=== PATIENT | female | born 1970 | race Caucasian/White ===

== ENCOUNTER 2019-05-17 20:36 | Inpatient (IN) | payer BC, OTHER ==
[2019-05-17] MEDS ORDERED: NA CHLORIDE 0.9% 1,000 ML ONE (20:45)
[2019-05-17] MEDS ORDERED: ONDANSETRON 4 MG/2 ML VIAL ONE (21:02)
[2019-05-17] MEDS ORDERED: FAMOTIDINE 20 MG/2 ML VIAL IV ONE (21:02)
[2019-05-17] MEDS ORDERED: MORPHINE 4 MG/ML SYR ONE (21:02)
[2019-05-17 21:03] LABS: Urine Blood NEGATIVE (NEG); Urine Glucose NEGATIVE (NEG); Urine Protein NEGATIVE (NEG)
[2019-05-17 21:05] LABS: Absolute Lymphocytes (CBC) 1.2 K/uL (0.7-4.9); Basophils % 0.4 % (0-1.3); Hematocrit 43.7 % (36.0-45.0); Lymphocytes % 8.5 % (15.3-44.8); RBC Red Blood Cell Count 4.53 M/uL (3.86-4.86)
[2019-05-17 21:21] LABS: Albumin 3.6 g/dL (3.4-5.0); Bilirubin Direct 0.2 mg/dL (0-0.2); Bilirubin Total 0.8 mg/dL (0.2-1.0); Potassium 3.5 mmol/L (3.5-5.1); Protein, Total 7.8 g/dL (6.4-8.2)
[2019-05-17] MEDS ORDERED: METRONIDAZOLE 500mg IVPB 500 MG/100 ML BAG IV ONE (21:57)
[2019-05-17] MEDS ORDERED: levoFLOXacin 750 MG TAB ONE (22:09)
--- NOTE | 2019-05-17 22:25 | EDPHYS ---
Physician Documentation [facility] Name: Kristine Snider Age: 48 yrs Sex: Female : 1970 Arrival Date: 05/17/2019 Time: 20:41 Bed 23 Private MD: ED Physician Jose Yanez HPI: 05/17 21:26 This 48 yrs old Female presents to ER via Ambulatory with complaints of kdr Abdominal Pain. 21:26 The patient presents with abdominal pain in the lower abdomen. Onset: The kdr symptoms/episode began/occurred gradually, 2 day(s) ago. The symptoms do not radiate. Associated signs and symptoms: Pertinent positives: Pertinent negatives: nausea and vomiting, constipation, diarrhea, dysuria, fever, headache, hematuria, nausea, palpitations, vomiting blood. The symptoms are described as achy, constant, Occasional stabbing pain. Modifying factors: The symptoms are alleviated by. Severity of pain: At its worst the pain was mild in the emergency department the pain is unchanged. The patient has not recently seen a physician. 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 - Social history:: Smoking status: Patient/guardian denies using tobacco, Patient uses alcohol, only on a social basis. Patient/guardian denies using street drugs. - Ebola Screening: : Patient negative for fever greater than or equal to 101.5 degrees Fahrenheit, and additional compatible Ebola Virus Disease symptoms Patient denies exposure to infectious person Patient denies travel to an Ebola-affected area in the 21 days before illness onset. ROS: 21:26 Constitutional: Negative for fever, chills, and weight loss, Eyes: Negative for injury, kdr pain, redness, and discharge, Neck: Negative for injury, pain, and swelling, Cardiovascular: Negative for chest pain, palpitations, and edema, Respiratory: Negative for shortness of breath, cough, wheezing, and pleuritic chest pain, Back: Negative for injury and pain, : Negative for injury, bleeding, discharge, and swelling, MS/Extremity: Negative for injury and deformity, Skin: Negative for injury, rash, and discoloration, Neuro: Negative for headache, weakness, numbness, tingling, and seizure activity. Psych: Negative for depression, anxiety, suicide ideation, homicidal ideation, and hallucinations, Allergy/Immunology: Negative for hives, rash, and allergies, Endocrine: Negative for neck swelling, polydipsia, polyuria, polyphagia, and marked weight changes, Hematologic/Lymphatic: Negative for swollen nodes, abnormal bleeding, and unusual bruising. 21:26 Abdomen/GI: Positive for abdominal pain, Negative for abdominal distension, anorexia, dysphagia, hematemesis, black/tarry stool, rectal pain, rectal bleeding, flatulence. Exam: 21:26 Constitutional: This is a well developed, well nourished patient who is awake, alert, kdr and in no acute distress. Head/Face: Normocephalic, atraumatic. Eyes: Pupils equal round and reactive to light, extra-ocular motions intact. Lids and lashes normal. Conjunctiva and sclera are non-icteric and not injected. Cornea within normal limits. Periorbital areas with no swelling, redness, or edema. Neck: Trachea midline, no thyromegaly or masses palpated, and no cervical lymphadenopathy. Supple, full range of motion without nuchal rigidity, or vertebral point tenderness. No Meningismus. Chest/axilla: Normal chest wall appearance and motion. Nontender with no deformity. No lesions are appreciated. Cardiovascular: Regular rate and rhythm with a normal S1 and S2. No gallops, murmurs, or rubs. Normal PMI, no JVD. No pulse deficits. Respiratory: Lungs have equal breath sounds bilaterally, clear to auscultation and percussion. No rales, rhonchi or wheezes noted. No increased work of breathing, no retractions or nasal flaring. Back: No spinal tenderness. No costovertebral tenderness. Full range of motion. Skin: Warm, dry with normal turgor. Normal color with no rashes, no lesions, and no evidence of cellulitis. MS/ Extremity: Pulses equal, no cyanosis. Neurovascular intact. Full, normal range of motion. Neuro: Awake and alert, GCS 15, oriented to person, place, time, and situation. Cranial nerves II-XII grossly intact. Motor strength 5/5 in all extremities. Sensory grossly intact. Cerebellar exam normal. Normal gait. Psych: Awake, alert, with orientation to person, place and time. Behavior, mood, and affect are within normal limits. 21:26 Abdomen/GI: Inspection: abdomen appears normal, Bowel sounds: active, all quadrants, Palpation: soft, moderate abdominal tenderness, rebound tenderness, is appreciated in the right lower quadrant, voluntary guarding, tenderness to percussion, is appreciated in the right lower quadrant and left lower quadrant. Vital Signs: 20:35 BP 117 / 83; Pulse 87; Resp 12; Temp 99.3(O); Pulse Ox 98% on R/A; Weight 67.13 kg (R); fc Height 5 ft. 4 in. (162.56 cm) (R); Pain 7/10; 21:30 BP 121 / 82; Pulse 82; Resp 16 S; Pulse Ox 98% on R/A; ca1 22:24 BP 126 / 77; Pulse 89; Resp 17 S; Pulse Ox 98% on R/A; ca1 20:35 Body Mass Index 25.40 (67.13 kg, 162.56 cm) fc MDM: 21:26 Data reviewed: vital signs, nurses notes, lab test result(s), radiologic studies. kdr Counseling: I had a detailed discussion with the patient and/or guardian regarding: the historical points, exam findings, and any diagnostic results supporting the discharge/admit diagnosis, lab results, radiology results. 22:23 Patient medically screened. [facility] 05/17 20:42 Order name: Basic Metabolic Panel; Complete Time: 21:54 kdr 05/17 20:42 Order name: CBC with Diff; Complete Time: 21:54 kdr 05/17 20:42 Order name: Creatinine for Radiology; Complete Time: 21:54 kdr 05/17 20:42 Order name: Hepatic Function; Complete Time: 21:54 kdr 05/17 20:42 Order name: Lipase; Complete Time: 21:54 kdr 05/17 20:59 Order name: Urine Dipstick--Ancillary (enter results) mt 05/17 21:04 Order name: Urine Dipstick-Ancillary EDWI 05/17 23:56 Order name: CBC with Automated Diff EDMS 05/17 23:56 Order name: CBC with Automated Diff EDMS 05/17 23:56 Order name: Comprehensive Metabolic Panel EDMS 05/17 23:56 Order name: Comprehensive Metabolic Panel EDMS 05/17 23:56 Order name: Protime (+INR) EDMS 05/17 23:56 Order name: Protime (+INR) EDMS 05/17 23:56 Order name: PTT, Activated Partial Thromb EDMS 05/17 20:42 Order name: CT Abd/Pelvis - IV Contrast Only kdr 05/17 23:56 Order name: CONS Pharmacy Consult EDMS 05/17 23:56 Order name: CONS Physician Consult EDMS 05/17 23:56 Order name: PTT, Activated Partial Thromb EDMS 05/17 23:59 Order name: B-HCG Tumor Marker EDMS 05/17 23:59 Order name: B-HCG Tumor Marker EDMS 05/17 23:59 Order name: T4 Free EDMS 05/17 23:59 Order name: T4 Free EDMS 05/17 23:59 Order name: Thyroid Stimulating Hormone EDMS 05/18 00:00 Order name: Thyroid Stimulating Hormone EDMS 05/17 20:42 Order name: IV Saline Lock; Complete Time: 21:07 kdr 05/17 20:42 Order name: Labs collected and sent; Complete Time: 21:07 kdr 05/17 23:56 Order name: Clear Liquid EDWI Administered Medications: 20:50 Drug: NS 0.9% 1000 ml Route: IV; Rate: 1 bolus; Site: right antecubital; ca1 22:26 Follow up: Response: No adverse reaction; IV Status: Completed infusion; IV Intake: ca1 1000ml 20:51 Drug: Zofran 4 mg Route: IVP; Site: right antecubital; ca1 21:59 Follow up: Response: No adverse reaction; Nausea is decreased ca1 20:55 Drug: Pepcid 20 mg Route: IVP; Site: right antecubital; ca1 21:59 Follow up: Response: No adverse reaction; Pain is decreased ca1 21:06 Drug: morphine 4 mg {Note: RASS - 0.} Route: IVP; Site: right antecubital; ca1 21:58 Follow up: Response: No adverse reaction; Pain is decreased; RASS: Alert and Calm (0) ca1 21:58 Drug: Flagyl 500 mg Volume: 100 ml; Route: IVPB; Rate: 200 ml/hr; Infused Over: 30 ca1 mins; Site: right antecubital; 22:41 Follow up: Response: No adverse reaction; IV Status: Completed infusion ca1 22:10 Drug: LevaQUIN 750 mg Route: PO; rv 22:41 Follow up: Response: No adverse reaction ca1 Disposition: 05/17/19 23:13 Hospitalization ordered by Fernando Louie for Inpatient Admission. Preliminary diagnosis are Abdominal and pelvic pain, Perforated Diverticulitis. - Bed requested for Telemetry/MedSurg (Inpatient). - Status is Inpatient Admission. rv - Condition is Fair. - Problem is new. - Symptoms have improved. UTI on Admission? No Signatures: Dispatcher [employer] EDMS Jose Yanez MD MD kdr Justa Dalal RN RN fc Burak Wolfe RN RN rv AcobBrenda RN RN ca1 Corrections: (The following items were deleted from the chart) 22:42 22:23 05/17/2019 22:23 Discharged to Home. Impression: Abdominal and pelvic pain; ca1 Diverticulitis, Cecum. Condition is Stable. Forms are Medication Reconciliation Form, Thank You Letter, Antibiotic Education, Prescription Opioid Use. Follow up: Private Physician; When: 2 - 3 days; Reason: If symptoms return, Further diagnostic work-up, Recheck today's complaints, Continuance of care, Re-evaluation by your physician. Problem is new. Symptoms have improved. kdr 22:54 22:42 05/17/2019 22:23 Discharged to Home. Impression: Abdominal and pelvic pain; fc Diverticulitis, Cecum. Condition is Stable. Discharge Instructions: Abdominal Pain, Adult, [id number]. Prescriptions for Bentyl 20 mg Oral Tablet - take 1 tablet by ORAL route every 6 hours As needed; 20 tablet, Flagyl 500 mg Oral Tablet - take 1 tablet by ORAL route every 6 hours for 10 days; 40 tablet, Levaquin 500 mg Oral Tablet - take 1 tablet by ORAL route once daily for 10 days; 10 tablet, Zofran 4 mg Oral Tablet - take 1 tablet by ORAL route every 4-6 hours As needed; 16 tablet, Tylenol-Codeine #3 300-30 mg Oral Tablet - take 2 tablets by ORAL route every 4-6 hours As needed; 30 tablet. and Forms are Medication Reconciliation Form, Thank You Letter, Antibiotic Education, Prescription Opioid Use. Follow up: Private Physician; When: 2 - 3 days; Reason: If symptoms return, Further diagnostic work-up, Recheck today's complaints, Continuance of care, Re-evaluation by your physician. Problem is new. Symptoms have improved. ca1 23:12 22:54 05/17/2019 22:23 Discharged to Home. Impression: Abdominal and pelvic pain; kdr Diverticulitis, Cecum. Condition is Stable. Discharge Instructions: Abdominal Pain, Adult, [id number]. Prescriptions for Bentyl 20 mg Oral Tablet - take 1 tablet by ORAL route every 6 hours As needed; 20 tablet, Flagyl 500 mg Oral Tablet - take 1 tablet by ORAL route every 6 hours for 10 days; 40 tablet, Levaquin 500 mg Oral Tablet - take 1 tablet by ORAL route once daily for 10 days; 10 tablet, Tramadol 50 mg Oral Tablet - take 1 tablet by ORAL route every 8 hours as needed; 12 tablet, Zofran 4 mg Oral Tablet - take 1 tablet by ORAL route every 4-6 hours As needed; 16 tablet, Tylenol-Codeine #3 300-30 mg Oral Tablet - take 2 tablets by ORAL route every 4-6 hours As needed; 30 tablet. and Forms are Medication Reconciliation Form, Thank You Letter, Antibiotic Education, Prescription Opioid Use. Follow up: Private Physician; When: 2 - 3 days; Reason: If symptoms return, Further diagnostic work-up, Recheck today's complaints, Continuance of care, Re-evaluation by your physician. Problem is new. Symptoms have improved. 23:43 23:13 Hospitalization Ordered by Fernando Louie MD for Inpatient Admission. Preliminary rv diagnosis is Abdominal and pelvic pain; Perforated Diverticulitis. Bed requested for Telemetry/MedSurg (Inpatient). Status is Inpatient Admission. Condition is Fair. Problem is new. Symptoms have improved. UTI on Admission? No. kdr 05/18 00:39 05/17 23:43 05/17/2019 23:13 Hospitalization Ordered by Fernando Louie MD for Inpatient rv Admission. Preliminary diagnosis is Abdominal and pelvic pain; Perforated Diverticulitis. Bed requested for Telemetry/MedSurg (Inpatient). Status is Inpatient Admission. Condition is Fair. Problem is new. Symptoms have improved. UTI on Admission? No. rv
--- NOTE | 2019-05-17 22:25 | ER ---
Nurse's Notes [facility] Name: Kristine Snider Age: 48 yrs Sex: Female : 1970 Arrival Date: 05/17/2019 Time: 20:41 Bed 23 Private MD: Diagnosis: Abdominal and pelvic pain;Perforated Diverticulitis Presentation: 05/17 20:35 Presenting complaint: Patient states: that yesterday she started to have lower abd fc pain. Last BM 2 days ago. No gas today. Pt has had 3 days worth of Levaquin. Transition of care: patient was not received from another setting of care. Onset of symptoms was May 16, 2019. Risk Assessment: Do you want to hurt yourself or someone else? Patient reports no desire to harm self or others. Initial Sepsis Screen: Does the patient meet any 2 criteria? No. Patient's initial sepsis screen is negative. Does the patient have a suspected source of infection? No. Patient's initial sepsis screen is negative. Care prior to arrival: Medication(s) given: Tylenol 1 gram at 1600. Tramadol 50 mg and Meloxicam 15 mg at 1700. Levaquin 500 mg daily x 3 doses. 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 - Social history:: Smoking status: Patient/guardian denies using tobacco, Patient uses alcohol, only on a social basis. Patient/guardian denies using street drugs. - Ebola Screening: : Patient negative for fever greater than or equal to 101.5 degrees Fahrenheit, and additional compatible Ebola Virus Disease symptoms Patient denies exposure to infectious person Patient denies travel to an Ebola-affected area in the 21 days before illness onset. Screenin:25 Abuse screen: Denies threats or abuse. Nutritional screening: No deficits noted. fc Tuberculosis screening: No symptoms or risk factors identified. Fall Risk None identified. Assessment: 20:45 General: Appears in no apparent distress. comfortable, Behavior is calm, cooperative, ca1 appropriate for age. Pain: Complains of pain in left lower quadrant and right lower quadrant Pain currently is 7 out of 10 on a pain scale. Quality of pain is described as stabbing, Pain began 2-3 days ago. Neuro: Level of Consciousness is awake, alert, obeys commands, Oriented to person, place, time, situation, Appropriate for age. Cardiovascular: Heart tones S1 S2 present Capillary refill < 3 seconds Patient's skin is warm and dry. Respiratory: Airway is patent Respiratory effort is even, unlabored, Respiratory pattern is regular, symmetrical. GI: Abdomen is round non-distended, Bowel sounds present X 4 quads. Abd is soft X 4 quads Abdomen is tender to palpation in right lower quadrant and left lower quadrant. : No deficits noted. No signs and/or symptoms were reported regarding the genitourinary system. EENT: No deficits noted. No signs and/or symptoms were reported regarding the EENT system. Derm: Skin is intact, is healthy with good turgor, Skin is pink, warm \T\ dry. Musculoskeletal: Circulation, motion, and sensation intact. Capillary refill < 3 seconds, Range of motion: intact in all extremities. 21:50 Reassessment: Patient appears in no apparent distress at this time. Patient and/or ca1 family updated on plan of care and expected duration. Pain level reassessed. Patient is alert, oriented x 3, equal unlabored respirations, skin warm/dry/pink. 22:23 Reassessment: Patient appears in no apparent distress at this time. Patient and/or ca1 family updated on plan of care and expected duration. Pain level reassessed. Patient is alert, oriented x 3, equal unlabored respirations, skin warm/dry/pink. 23:06 Reassessment: [facility] report has come back. Dr Yanez has reviewed test and discussed fc them with pts . Pt to return to ER for admission. 23:35 Reassessment: Pt has returned and is back in room. fc 23:44 Reassessment: Dr Munroe and Dr Louie speaking with and pt. fc Vital Signs: 20:35 BP 117 / 83; Pulse 87; Resp 12; Temp 99.3(O); Pulse Ox 98% on R/A; Weight 67.13 kg (R); fc Height 5 ft. 4 in. (162.56 cm) (R); Pain 7/10; 21:30 BP 121 / 82; Pulse 82; Resp 16 S; Pulse Ox 98% on R/A; ca1 22:24 BP 126 / 77; Pulse 89; Resp 17 S; Pulse Ox 98% on R/A; ca1 20:35 Body Mass Index 25.40 (67.13 kg, 162.56 cm) ED Course: 20:25 Patient has correct armband on for positive identification. Placed in gown. Bed in low fc position. Call light in reach. Pulse ox on. NIBP on. 20:25 No provider procedures requiring assistance completed. fc 20:35 Arm band placed on Patient placed in an exam room, on a stretcher. fc 20:41 Patient arrived in ED. cf2 20:42 Jose Yanez MD is Attending Physician. kdr 20:43 Brenda Sterling RN is Primary Nurse. ca1 20:52 Triage completed. fc 21:00 Radiology exam delayed due to lab results not completed at this time. (BUN/Creatinine). bq 22:08 CT Abd/Pelvis - IV Contrast Only In Process Unspecified. EDMS 22:42 IV discontinued, intact, bleeding controlled, No redness/swelling at site. Pressure ca1 dressing applied. 22:53 Primary Nurse role handed off by Brenda Sterling, JUDD fc 23:10 Burak Wolfe RN is Primary Nurse. rv 23:12 Fernando Louie MD is Hospitalizing Provider. kdr 05/18 00:11 Inserted saline lock: 22 gauge in left forearm, using aseptic technique. rv Administered Medications: 05/17 20:50 Drug: NS 0.9% 1000 ml Route: IV; Rate: 1 bolus; Site: right antecubital; ca1 22:26 Follow up: Response: No adverse reaction; IV Status: Completed infusion; IV Intake: ca1 1000ml 20:51 Drug: Zofran 4 mg Route: IVP; Site: right antecubital; ca1 21:59 Follow up: Response: No adverse reaction; Nausea is decreased ca1 20:55 Drug: Pepcid 20 mg Route: IVP; Site: right antecubital; ca1 21:59 Follow up: Response: No adverse reaction; Pain is decreased ca1 21:06 Drug: morphine 4 mg {Note: RASS - 0.} Route: IVP; Site: right antecubital; ca1 21:58 Follow up: Response: No adverse reaction; Pain is decreased; RASS: Alert and Calm (0) ca1 21:58 Drug: Flagyl 500 mg Volume: 100 ml; Route: IVPB; Rate: 200 ml/hr; Infused Over: 30 ca1 mins; Site: right antecubital; 22:41 Follow up: Response: No adverse reaction; IV Status: Completed infusion ca1 22:10 Drug: LevaQUIN 750 mg Route: PO; rv 22:41 Follow up: Response: No adverse reaction ca1 Intake: 22:26 IV: 1000ml; Total: 1000ml. ca1 Outcome: 22:23 Discharge ordered by . kdr 22:42 Discharged to home via wheelchair. ca1 22:42 Condition: stable 22:42 Discharge instructions given to patient, Instructed on discharge instructions, follow up and referral plans. medication usage, Demonstrated understanding of instructions, follow-up care, medications, Prescriptions given X 5 22:42 Patient left the ED. ca1 22:54 Patient left the ED. fc 23:13 Decision to Hospitalize by Provider. kdr 05/18 00:39 Patient left the ED. rv Signatures: Dispatcher [employer] EDMS Jose Yanez MD MD kdr Quilty, Betty bq Chretien, Felicia, RN RN Burak Wolfe RN RN rv Brenda Sterling RN RN [facility] Nolan Cox cf2
[2019-05-17] MEDS ORDERED: ONDANSETRON 4 MG/2 ML VIAL IV PRN (23:48)
[2019-05-18] MEDS ORDERED: ZOLPIDEM TARTRATE 5 MG TABLET PO PRN (00:23)
[2019-05-18 00:35] VITALS: BMI 27.2
[2019-05-18] MEDS: NA CHLORIDE 0.9% 1,000 ML IV SCH ×3 (01:05→20:05)
[2019-05-18] MEDS: MORPHINE 4 MG/ML SYR IV PRN ×2 (01:43→22:08)
[2019-05-18 04:34] LABS: Absolute Lymphocytes (CBC) 1.1 K/uL (0.7-4.9); Basophils % 0.4 % (0-1.3); Hematocrit 39.1 % (36.0-45.0); Lymphocytes % 10.7 % (15.3-44.8); MPV 9.5 fL (7.6-11.3); RBC Red Blood Cell Count 4.04 M/uL (3.86-4.86)
[2019-05-18 04:35] LABS: Protime INR 1.27
[2019-05-18] MEDS: METRONIDAZOLE 500mg IVPB 500 MG/100 ML BAG IV SCH ×4 (04:50→21:19)
[2019-05-18 04:55] LABS: Albumin 2.8 g/dL (3.4-5.0); Bilirubin Total 0.6 mg/dL (0.2-1.0); Potassium 3.8 mmol/L (3.5-5.1); Protein, Total 6.4 g/dL (6.4-8.2)
[2019-05-18 05:00] LABS: Thyroid Stimulating Hormone 3.88 uIU/mL (0.360-3.740)
[2019-05-18] MEDS: ACETAMINOPHEN 325 MG TABLET PO PRN ×2 (05:52→10:44)
--- NOTE | 2019-05-18 09:25 | P.HP ---
Certification for Inpatient Patient admitted to: Inpatient With expected LOS: >2 Midnights Patient will require the following post-hospital care: None Practitioner: I am a practitioner with admitting privileges, knowledge of patient current condition, hospital course, and medical plan of care. Services: Services provided to patient in accordance with Admission requirements found in Title 42 Section 412.3 of the Code of Federal Regulations Patient History Date of Service: 05/18/19 Reason for admission: Abdominal pain History of Present Illness: Patient is a 48-year-old female who came to the hospital with severe abdominal pain. She was driving on her way home from [place] with her , Dr. Stewart Snider, a local family physician. Patient was having worse pain. Patient brought into our local ER where patient had a CT of the abdomen and pelvis performed. This revealed questionable liver metastasis along with questions peritoneal metastasis. Patient also had microperforation of the colon. Patient was admitted to the hospital for further treatment. Allergies hydrocodone Allergy (Verified 05/18/19 00:35) Itching/Hives/Rash Home Medications: Zolpidem Tartrate 10 mg PO BEDTIME 05/18/19 - Past Medical/Surgical History Has patient received pneumonia vaccine in the past: Yes Diabetic: No -: choriocarcinoma - was on chemo -: fibroid -: hysterectomy - Social History Smoking Status: Never smoker Alcohol use: Yes Place of Residence: Home Review of Systems 10-point ROS is otherwise unremarkable Physical Examination - Vital Signs Temperature: 97.8 F Blood Pressure: 115/60 Pulse: 98 Respirations: 18 Pulse Ox (%): 94 - Physical Exam General: Alert, In no apparent distress, Oriented x3 HEENT: Atraumatic, PERRLA, Mucous membr. moist/pink, EOMI, Sclerae nonicteric Neck: Supple, 2+ carotid pulse no bruit, No LAD, Without JVD or thyroid abnormality Respiratory: Clear to auscultation bilaterally, Normal air movement Cardiovascular: Regular rate/rhythm, Normal S1 S2, No murmurs Gastrointestinal: Normal bowel sounds, Soft and benign, Non-distended, Tenderness Musculoskeletal: No clubbing, No swelling, No tenderness Integumentary: No rashes Neurological: Normal gait, Normal speech, Normal strength at 5/5 x4 extr, Normal tone, Sensation intact, Cranial nerves 3-12 intact, Normal affect Lymphatics: No axilla or inguinal lymphadenopathy - Studies Laboratory Data (last 24 hrs) 05/17/19 20:54: Creatinine 0.90 05/17/19 20:54: WBC 13.9 H, Hgb 14.3, Hct 43.7, Plt Count 258 05/17/19 20:54: Sodium 139, Potassium 3.5, BUN 14, Creatinine 0.92, Glucose 113 H, Total Bilirubin 0.8, AST 25, ALT 30, Alkaline Phosphatase 121 H, Lipase 103 Assessment & Plan - Problems (Diagnosis) (1) Diverticulitis of colon with perforation Current Visit: Yes Status: Acute (2) Choriocarcinoma of female Current Visit: Yes Status: Acute (3) Liver lesion Current Visit: Yes Status: Acute (4) Peritoneal lesion Current Visit: Yes Status: Acute - Plan 1. Continue with IV hydration 2. Continue with IV antibiotics 3. Continue with pain control 4. NPO 5. General surgery consultation; outpatient colonoscopy in 6-12 weeks 6. Labs as an outpatient. Her wants to wait to get beta HCG levels on referral to MD Pichardo 7. GI and DVT prophylaxis - Advance Directives Does patient have a Living Will: Yes Does patient have a Durable POA for Healthcare: Yes - Code Status/Comfort Care Code Status Assessed: Yes Code Status: Full Code Critical Care: No Time Spent Managing PTS Care (In Minutes): 45
--- NOTE | 2019-05-18 10:33 | RAD REPORT ---
EXAM DESCRIPTION: CT - Abdomen Pelvis W Contrast - 05/17/2019 10:08 pm CLINICAL HISTORY: Abdominal pain. History of choriocarcinoma. TECHNIQUE: CT scan of the abdomen and pelvis was performed with intravenous contrast. 5 mm arterial phase axial images of the abdomen. 5 mm venous phase axial images of the abdomen and pelvis were obtained along with coronal and sagitta l reformatted images. DOSE OPTIMIZATION: This facility uses dose optimization techniques as appropriate to perform exams, including at least one of the following techniques: 1. Automated exposure control. 2. Adjustment of the mA and/or kV according to patient size (this includes techniques or standardized protocols for targeted exams where dose is matched to the indication/reason for exam, i.e. extremiti es or head). 3. Use of iterative reconstructive technique. INTRAVENOUS CONTRAST: Not documented. Please refer to medical record. ORAL CONTRAST: None. COMPARISON: None. FINDINGS: Lung Bases: Normal. Liver: There is diffuse fatty liver infiltration. There are multiple hepatic lesions suspicious for metastatic disease. The largest lesion is in the medial segment left hepatic lobe and measures 4.2 x 3.6 x 4.0 cm maximal dimensions. Spleen: Normal. Pancreas: Normal. Gallbladder: Normal. Adrenal Glands: Normal. Kidneys: Normal. Retroperitoneal Structures: Normal. Bowel Survey: There is increased stool identified throughout the colon. The appendix is unremarkable. The distal ileum is unremarkable. There is moderately severe mural thickening within the mid sigmoid colon with adjacent edematous potter ges a small amount of free gas. Findings are consistent with moderate severe diverticulitis with microperforation. There is no abscess. Uterus and Adnexa: Absent Urinary Bladder: Normal. Peritoneal Cavity: There is a circumscribed mass identified involving the inferior aspect of the righ t hepatic lobe with mural calcifications. This is suspicious for metastatic peritoneal lesion. This measures 4.0 x 3.9 cm. Mesenteric Structures: Normal. Abdominal Wall: No hernia. Bony Structures: No suspicious lesions. IMPRESSION: 1. Moderately severe diverticulitis involving the mid sigmoid colon with evidence of per foration. 2. Hepatic metastatic disease. 3. Evidence of peritoneal metastatic disease. Electronically signed by: Conrad Mir MD 05/17/2019 10:33 PM CDT Due to temporary technical issues with the PACS/Fluency reporting system, reports are being signed by the in house radiologist as a courtesy to ensure prompt reporting. The interpreting radiologist is franco goodwin responsible for the content of the report.
[2019-05-18] MEDS ORDERED: MINERAL OIL 30 ML UCUP PO ONE (11:38)
--- NOTE | 2019-05-18 12:29 | P.CNS ---
Date of Consult: 05/18/19 PC: This patient presents emergency room with severe left lower quadrant abdominal pain for diagnosis and treatment. HPC: This patient, was on a 2D a [address] trip from [place]. Additionally noted she has some abdominal pain and tenderness. This is localized to the left lower portion of her abdomen. Was extraordinarily severe and she came to the emergency room to being evaluated. PMH: History of choriocarcinoma (was treated with chemotherapy) PSHx: Previous hysterectomy, oophorectomy SOC: Allergic to hydrocodone, her other medications were reviewed SYS REVIEW: No cough, wheeze, shortness of breath. No chest pain or palpitations. Denies any urinary complaints O/E awake alert ill-looking young lady HEENT: Not jaundice Chest: Chest movement equal bilaterally ABD: In his marked tenderness and guarding in the left lower quadrant, LOCO: No calf tenderness DATA: Elevated white cell count, CT scan shows inflamed portion of the sigmoid colon with microperforation. No intraperitoneal free air is noted No abscess formation is seen. She also has a question of some hepatic irregularities. IMPRESSION: This patient has minor perforations or sigmoid colon. This is consistent with the diverticulitis seen. Clinically she is stable at the moment is not require surgical intervention. We will observe her over the next 24-48 hr with IV fluids, analgesics, and antibiotics. She also has some irregularities seen in her liver. There is a question of metastatic disease however the patient was treated in the past for metastatic disease from her choriocarcinoma. This may represent old scarring. PLAN: Patient will be admitted to the hospital. She will receive analgesics. She will be placed on antibiotics. We will repeat her lab work and follower with clinical examinations.
--- NOTE | 2019-05-18 12:31 | P.PN ---
Date of Service: 05/18/19 S: Patient feels better today, more alert oriented and inter actual. I will signs remain stable. O: Abdomen is asphalt still operator but much improved since yesterday. Her white cell count has gone from [id number]. A: S bonding well to IV antibiotics. PE: The start on some clear liquids this p.m..
[2019-05-18] MEDS: DIAZEPAM 5 MG TABLET PO PRN ×2 (13:10→22:09)
[2019-05-18] MEDS: Levofloxacin500mg IV 500 MG/100 ML BAG IV SCH (21:20)
[2019-05-19] MEDS: METRONIDAZOLE 500mg IVPB 500 MG/100 ML BAG IV SCH ×4 (03:06→21:56)
[2019-05-19] MEDS: NA CHLORIDE 0.9% 1,000 ML IV SCH (05:34)
[2019-05-19] MEDS: ACETAMINOPHEN 325 MG TABLET PO PRN ×2 (08:36→21:53)
[2019-05-19 08:51] LABS: Absolute Lymphocytes (CBC) 0.9 K/uL (0.7-4.9); Basophils % 0.5 % (0-1.3); Hematocrit 37.8 % (36.0-45.0); Lymphocytes % 13.5 % (15.3-44.8); MPV 8.7 fL (7.6-11.3); RBC Red Blood Cell Count 3.93 M/uL (3.86-4.86)
[2019-05-19 09:10] LABS: Albumin 2.8 g/dL (3.4-5.0); Bilirubin Total 0.5 mg/dL (0.2-1.0); Potassium 3.7 mmol/L (3.5-5.1); Protein, Total 6.6 g/dL (6.4-8.2)
[2019-05-19] MEDS ORDERED: NA CHLORIDE 0.9% 100 ML IV ONE (19:58)
[2019-05-19] MEDS: Levofloxacin500mg IV 500 MG/100 ML BAG IV SCH (23:09)
[2019-05-19] MEDS: DIAZEPAM 5 MG TABLET PO PRN (23:11)
[2019-05-20] MEDS: METRONIDAZOLE 500mg IVPB 500 MG/100 ML BAG IV SCH ×4 (04:15→20:52)
[2019-05-20] MEDS: ACETAMINOPHEN 325 MG TABLET PO PRN (08:39)
--- NOTE | 2019-05-20 14:25 | PN ---
Date of Progress Note: 05/19/2019 Patient states she feels considerably better this afternoon as far the pain is concerned and her appe tite is improved somewhat as well. However, she continues to show rather significant rebound tendern ess in the left lower quadrant. She should therefore continue on the IV antibiotics at least in the next 24 hours. Her white count is dramatically improved as well. Overall condition has made signifi cant changes both clinically and lab cruz. The etiology of the liver lesion is still in doubt. Granger christin, this continue to be worked up in conjunction with the MD Pichardo. HR/MODL Voice ID: [id number] Report ID: [id number]
--- NOTE | 2019-05-20 14:27 | P.PN ---
Date of Service: 05/20/19 S: Patient continues to improve, still has some mild left lower quadrant abdominal pain. Has spasms earlier today and had area but seems to be less strong than her initial presentation. O: Vital signs remain stable, appears to be afebrile. Mobility is increasing. Seems a little bit more comfortable today. A: It appears this patient will not require surgical intervention. Her pain seems to be decreasing. Clinically she is much improved P: Anticipate discharge in a.m.. I have had her antibiotics called into the pharmacy.
--- NOTE | 2019-05-20 21:16 | PN ---
Date of Progress Note: 05/20/2019 Patient states she feels somewhat better today. She has tolerated her diet. She has minimal lower a bdominal discomfort. However, on exam, she still has a rather significant rebound tenderness. We wi ll repeat her blood work in the morning and presumably if it is under 10,000, she should be able to b e discharged on oral medication. HR/MODL Voice ID: [id number] Report ID: [id number]
[2019-05-20] MEDS: Levofloxacin500mg IV 500 MG/100 ML BAG IV SCH (22:31)
[2019-05-20 22:59] VITALS: O2SAT 98
[2019-05-21 04:17] LABS: Absolute Lymphocytes (CBC) 1.2 K/uL (0.7-4.9); Basophils % 0.8 % (0-1.3); Hematocrit 39.9 % (36.0-45.0); Lymphocytes % 26.6 % (15.3-44.8); MPV 8.7 fL (7.6-11.3); RBC Red Blood Cell Count 4.17 M/uL (3.86-4.86)
[2019-05-21 04:24] LABS: Potassium 3.8 mmol/L (3.5-5.1)
[2019-05-21] MEDS: METRONIDAZOLE 500mg IVPB 500 MG/100 ML BAG IV SCH ×2 (04:57→09:28)
[2019-05-21] MEDS: DIAZEPAM 5 MG TABLET PO PRN (09:27)
[2019-05-21 12:34] VITALS: BP 135/85; TEMP 97.8
== END 2019-05-21 12:48 | disposition home or self-care (01) | DRG 392 ==
LOC: ER 20:36 → ERHOLD 05-18 00:05 → 4TH 05-18 00:11
PROVIDERS: ADMIT Hospitalist; ATTEND Hospitalist
DX: K57.20 Diverticulitis of large intestine with perforation and abscess without bleeding (principal); K77 Liver disorders in diseases classified elsewhere; Z85.42 Personal history of malignant neoplasm of other parts of uterus
CPT/HCPCS: 36415; 74177; 80048; 80053; 80076; 81003; 83690; 84439; 84443; 85025; 85610; 85730; 96361; 96365; 96375; 99284; J2405; J7030; Q9967

== ENCOUNTER 2019-07-27 13:35 | Emergency (ER) | payer BC ==
[2019-07-27] MEDS ORDERED: MEPERIDINE HCL 50 MG/ML ONE ×3 (14:18→21:21)
[2019-07-27] MEDS ORDERED: NA CHLORIDE 0.9% 1,000 ML ONE (14:18)
[2019-07-27 14:34] LABS: Absolute Lymphocytes (CBC) 1.1 K/uL (0.7-4.9); Basophils % 0.4 % (0-1.3); Hematocrit 41.8 % (36.0-45.0); Lymphocytes % 9.4 % (15.3-44.8); MPV 8.7 fL (7.6-11.3); RBC Red Blood Cell Count 4.48 M/uL (3.86-4.86)
[2019-07-27 14:45] LABS: Albumin 3.7 g/dL (3.4-5.0); Bilirubin Direct 0.2 mg/dL (0-0.2); Bilirubin Total 0.8 mg/dL (0.2-1.0); Potassium 3.7 mmol/L (3.5-5.1); Protein, Total 7.5 g/dL (6.4-8.2)
--- NOTE | 2019-07-27 17:05 | RAD REPORT ---
EXAM DESCRIPTION: CT - Abdomen Pelvis W Contrast - 07/27/2019 4:38 pm CLINICAL HISTORY: recurrent diverticulitis;Abd pain, history of choriocarcinoma, history of recent l iver biopsy 2 weeks earlier COMPARISON: CT study May 17, 2019 TECHNIQUE: Biphasic, helical CT imaging of the abdomen and pelvis was performed following 100 ml non -ionic IV contrast. Oral contrast was given. All CT scans are performed using dose optimization technique as appropriate and may include automated exposure control or mA/KV adjustment according to patient size. FINDINGS: No suspicious findings in the lung bases. A 4 centimeter exophytic cystic mass projects from the lower right lobe liver. Rim is partially calci fied. Several additional rounded low-density areas are present in the liver. In the medial segment le ft lobe near the falciform ligament there is a 4 centimeter lobulated heterogeneous enhancing mass. T he liver findings are stable from May 17 imaging. The medial segment left lobe lesion is nonspec ific. This may be a hemangioma. In a patient with choriocarcinoma, metastatic disease cannot be exclu ded. Correlation is needed with patient clinical status. No far remote imaging available to establish stability of the liver findings. Spleen and pancreas show no acute findings. Gallbladder and biliary tree are also without suspicious finding. Symmetric renal function is seen with no hydronephrosis or suspicious renal mass. No pyelonephritis o r acute parenchymal process. No bladder abnormalities. No adrenal abnormalities. No gastric dilatation or gastric wall thickening. No duodenum abnormality. Small bowel is unremarkabl e. The appendix is normal. Oral contrast has reached the mid transverse colon. From cecum through the proximal descending colon no acute finding noted. There is prominent diverticulosis. There is a long segment 10-12 mm in length involving the proximal sigmoid colon in the distal descending colon. Wall s are thickened and irregular. Inflammatory stranding is present. Patient has extensive intraperitone al free air. The free air reaches the diaphragm. No abscess identified. No rectum abnormality. Uterus is absent. Ovaries are absent or atrophic. No abnormal fluid collections. No mass or bulky l ymphadenopathy. No omental thickening. No suspicious bony findings. IMPRESSION: Prominent amount of free intraperitoneal air reaching the diaphragm. This distant free a ir is most likely from perforated diverticulitis. Available history indicates recent liver biopsy. However, no abnormality in the right lung base and n o other findings in the right upper quadrant to indicate that the free air is related to that liver b iopsy procedure. No abscess is identified. No other abnormality that would be a source of free intraperitoneal air. Multiple lesions of the liver are present with the most notable finding in the medial segment left lo be 4 cm in size. This may simply be a hemangioma. Metastatic lesion is not excluded in a patient with the choriocarcinoma history. The liver lesions are unchanged from May 17. No more remote imaging available for correlation. No information is available as to what liver lesion was subjected to biopsy and no results are noted .
[2019-07-27] MEDS ORDERED: PIPER/TAZO/NS 3.375gm 3.375 GM/100 ML BAG ONE (17:14)
--- NOTE | 2019-07-27 17:48 | EDPHYS ---
Physician Documentation [facility] Name: Kristine Snider Age: 48 yrs Sex: Female : 1970 Arrival Date: 07/27/2019 Time: 13:39 Bed 25 Private MD: ED Physician Santo Hou HPI: 07/27 14:16 This 48 yrs old Female presents to ER via Ambulatory with complaints of rn abdominal pain. 14:16 The patient presents with abdominal pain in the left lower quadrant. Onset: The rn symptoms/episode began/occurred last night. The symptoms do not radiate. Associated signs and symptoms: Pertinent negatives: nausea and vomiting, blood in stools, chest pain, constipation, diarrhea, dysuria, fever, hematuria, vomiting, vomiting blood. The symptoms are described as crampy, intermittent, sharp. Modifying factors: The symptoms are alleviated by nothing, the symptoms are aggravated by movement, touching the area. Severity of pain: At its worst the pain was moderate in the emergency department the pain is unchanged. The patient has experienced similar episodes in the past. Reports multiple episodes of diverticulitis recently, last one in May, had small perforation, reports abd pain that began last night, has taken 2 doses of cipro/flagyl, feels like other episodes of diverticulitis, not as bad as last time. Never followed up with GI for colonoscopy. . 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 - Ebola Screening: : No symptoms or risks identified at this time. - Family history:: not pertinent. - Social history:: Smoking status: Patient/guardian denies using tobacco, Patient/guardian denies using alcohol, street drugs, IV drugs. - Hospitalizations: : No recent hospitalization is reported. ROS: 14:16 Constitutional: Negative for fever, chills, and weight loss, Eyes: Negative for injury, rn pain, redness, and discharge, Neck: Negative for injury, pain, and swelling, Cardiovascular: Negative for chest pain, palpitations, and edema, Respiratory: Negative for shortness of breath, cough, wheezing, and pleuritic chest pain, Abdomen/GI: + abd pain, neg for blood in stool MS/Extremity: Negative for injury and deformity, Skin: Negative for injury, rash, and discoloration, Neuro: Negative for headache, weakness, numbness, tingling, and seizure. Exam: 14:16 Constitutional: This is a well developed, well nourished patient who is awake, alert, rn and in no acute distress. Ambulatory to room without difficulty or assistance. Head/Face: Normocephalic, atraumatic. ENT: MMM Cardiovascular: Regular rate and rhythm. No pulse deficits. Respiratory: No increased work of breathing, no retractions. Speaking full sentences. Abdomen/GI: soft, + tender LLQ with guarding, no rebound MS/ Extremity: Pulses equal, no cyanosis Neuro: Awake and alert, GCS 15 Vital Signs: 14:07 BP 134 / 86; Pulse 80; Resp 18; Pulse Ox 98% on R/A; mg2 14:25 Temp 97.74(O); Weight 68.49 kg; mg2 16:11 BP 120 / 79; Pulse 77; Resp 17; Pulse Ox 98% on R/A; Pain 0/10; mg2 17:41 BP 129 / 86; Pulse 100; Resp 18; Pulse Ox 98% on R/A; Pain 4/10; mg2 18:34 BP 126 / 76; Pulse 86; Resp 18; Pulse Ox 95% on R/A; mg2 20:04 BP 120 / 81; Pulse 92; Resp 18; Pulse Ox 95% on R/A; mg2 20:47 BP 120 / 82; Pulse 90; Resp 18; Temp 99.4(O); Pulse Ox 100% on R/A; mg2 MDM: 13:39 Patient medically screened. rn 17:14 Differential diagnosis: diverticulitis, acute diverticulitis with perforation. Data rn reviewed: vital signs, nurses notes, lab test result(s), radiologic studies, CT scan, and as a result, I will admit patient. Counseling: I had a detailed discussion with the patient and/or guardian regarding: the historical points, exam findings, and any diagnostic results supporting the discharge/admit diagnosis, lab results, radiology results, the need for further work-up and treatment in the hospital. Response to treatment: the patient's symptoms have mildly improved after treatment. ED course: Patient with perforated diverticulitis, consulted with Dr. Munroe, will contact Dr. Jerez colorectal surgeon for further recs and possible transfer. . 18:54 ED course: Still waiting on [facility] to [facility], [facility] Jerez has accepted patient, rn waiting on [facility] to call back to give clearance.. 18:56 ED course: Spoke with Dr. 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 Munroe with IV abx. . 07/27 14:00 Order name: Basic Metabolic Panel; Complete Time: 14:47 rn 07/27 14:00 Order name: CBC with Diff; Complete Time: 14:40 rn 07/27 14:00 Order name: Creatinine for Radiology; Complete Time: 14:47 rn 07/27 14:00 Order name: Hepatic Function; Complete Time: 14:47 rn 07/27 14:00 Order name: Lipase; Complete Time: 14:47 rn 07/27 14:00 Order name: IV Saline Lock; Complete Time: 14:10 rn 07/27 14:16 Order name: Abdomen ; Complete Time: 17:20 EDMS 07/27 14:00 Order name: Labs collected and sent; Complete Time: 14:10 rn Administered Medications: 14:25 Drug: Demerol 50 mg Route: IVP; Site: right antecubital; mg2 17:09 Follow up: Response: No adverse reaction; Marked relief of symptoms mg2 14:25 Drug: NS 0.9% 1000 ml Route: IV; Rate: 1000 ml; Site: right antecubital; mg2 17:09 Follow up: Response: No adverse reaction; IV Status: Completed infusion; IV Intake: mg2 1000ml 17:29 Drug: Zosyn 3.375 grams Route: IVPB; Infused Over: 60 mins; Site: right antecubital; mg2 18:33 Follow up: Response: No adverse reaction; IV Status: Completed infusion mg2 17:41 Drug: Demerol 50 mg Route: IVP; Site: right antecubital; mg2 18:33 Follow up: Response: No adverse reaction; Marked relief of symptoms; Pain is decreased mg2 21:26 Drug: Zofran 4 mg Route: IVP; Site: right antecubital; mg2 21:27 Follow up: Response: No adverse reaction; administered prior to transfer mg2 21:27 Drug: Demerol 50 mg Route: IVP; Site: right antecubital; mg2 21:27 Follow up: Response: No adverse reaction; administered prior to transfer mg2 Disposition: 07/27/19 17:47 Transfer ordered to [facility]. Diagnosis are Acute Diverticulitis with perforation, Peritonitis, unspecified. - Reason for transfer: Higher level of care. - Accepting physician is Dr. Jerez. - Condition is Stable. - Problem is new. - Symptoms have improved. Signatures: Dispatcher [employer] EDNJ Santo Hou MD MD rn Gardose, Michele, RN RN mg2 Corrections: (The following items were deleted from the chart) 14:15 14:02 Abdomen W/ Con+CT.RAD.BRZ ordered. [facility] 21:39 17:47 07/27/2019 17:47 Transfer ordered to [facility]. Diagnosis is mg2 Acute Diverticulitis with perforation; Peritonitis, unspecified. Reason for transfer: Higher level of care. Accepting physician is Dr. Jerez. Condition is Stable. Problem is new. Symptoms have improved. rn
--- NOTE | 2019-07-27 17:48 | ER ---
Nurse's Notes [facility] Name: Kristine Snider Age: 48 yrs Sex: Female : 1970 Arrival Date: 07/27/2019 Time: 13:39 Bed 25 Private MD: Diagnosis: Acute Diverticulitis with perforation;Peritonitis, unspecified Presentation: 07/27 14:06 Presenting complaint: Patient states: i have history of diverticulitis and i have lower mg2 abdominal pain. Transition of care: patient was not received from another setting of care. Onset of symptoms was July 2019. Risk Assessment: Do you want to hurt yourself or someone else? Patient reports no desire to harm self or others. Initial Sepsis Screen: Does the patient meet any 2 criteria? No. Patient's initial sepsis screen is negative. Does the patient have a suspected source of infection? No. Patient's initial sepsis screen is negative. Care prior to arrival: None. 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 - Ebola Screening: : No symptoms or risks identified at this time. - Family history:: not pertinent. - Social history:: Smoking status: Patient/guardian denies using tobacco, Patient/guardian denies using alcohol, street drugs, IV drugs. - Hospitalizations: : No recent hospitalization is reported. Screenin:54 Abuse screen: Denies threats or abuse. Denies injuries from another. Nutritional mg2 screening: No deficits noted. Tuberculosis screening: No symptoms or risk factors identified. Fall Risk. Assessment: 13:54 Reassessment: dr Lewis at bedside examining the patient. mg2 14:08 General: Appears in no apparent distress. comfortable, Behavior is calm, cooperative. mg2 Pain: Complains of pain in abdomen Pain radiates to back Pain currently is 5 out of 10 on a pain scale. Quality of pain is described as aching, Pain began gradually, Is intermittent. Neuro: Level of Consciousness is awake, alert, obeys commands, Oriented to person, place, time, situation. Cardiovascular: Capillary refill < 3 seconds Patient's skin is warm and dry. Respiratory: Airway is patent Respiratory effort is even, unlabored, Respiratory pattern is regular, symmetrical. GI: Reports lower abdominal pain. : No signs and/or symptoms were reported regarding the genitourinary system. EENT: No signs and/or symptoms were reported regarding the EENT system. Derm: Skin is intact, is healthy with good turgor, Skin is pink, warm \T\ dry. normal. Musculoskeletal: Circulation, motion, and sensation intact. Capillary refill < 3 seconds. 16:11 Reassessment: Patient denies pain at this time. Patient states feeling better. mg2 17:42 Reassessment: dr lewis came and spoke to the patient and said patient is for transfer.mg2 18:28 Reassessment: Patient appears in no apparent distress at this time. Patient and/or mg2 family updated on plan of care and expected duration. Pain level reassessed. Patient is alert, oriented x 3, equal unlabored respirations, skin warm/dry/pink. Patient denies pain at this time. Patient states feeling better. 21:01 Reassessment: Patient appears in no apparent distress at this time. Patient and/or mg2 family updated on plan of care and expected duration. Pain level reassessed. Patient is alert, oriented x 3, equal unlabored respirations, skin warm/dry/pink. report given to Kadie Morrison RN of [facility]. Patient and family informed. 21:28 Reassessment: patient given pain medicine and anti-emetic prior to transfer. patient in mg2 good condition, a/o x4, iv intact. Vital Signs: 14:07 BP 134 / 86; Pulse 80; Resp 18; Pulse Ox 98% on R/A; mg2 14:25 Temp 97.74(O); Weight 68.49 kg; mg2 16:11 BP 120 / 79; Pulse 77; Resp 17; Pulse Ox 98% on R/A; Pain 0/10; mg2 17:41 BP 129 / 86; Pulse 100; Resp 18; Pulse Ox 98% on R/A; Pain 4/10; mg2 18:34 BP 126 / 76; Pulse 86; Resp 18; Pulse Ox 95% on R/A; mg2 20:04 BP 120 / 81; Pulse 92; Resp 18; Pulse Ox 95% on R/A; mg2 20:47 BP 120 / 82; Pulse 90; Resp 18; Temp 99.4(O); Pulse Ox 100% on R/A; mg2 ED Course: 13:39 Patient arrived in ED. rg4 13:39 Santo Hou MD is Attending Physician. rn 13:39 Ariel Edmond, JUDD is Primary Nurse. mg2 13:54 Patient has correct armband on for positive identification. Pulse ox on. NIBP on. Door mg2 closed. 14:07 Triage completed. mg2 14:08 No provider procedures requiring assistance completed. Inserted saline lock: 20 gauge mg2 in right antecubital area, using aseptic technique. Blood collected. 14:09 Arm band placed on. mg2 16:38 Abdomen In Process Unspecified. EDMS 21:38 Patient transferred, IV remains in place. mg2 Administered Medications: 14:25 Drug: Demerol 50 mg Route: IVP; Site: right antecubital; mg2 17:09 Follow up: Response: No adverse reaction; Marked relief of symptoms mg2 14:25 Drug: NS 0.9% 1000 ml Route: IV; Rate: 1000 ml; Site: right antecubital; mg2 17:09 Follow up: Response: No adverse reaction; IV Status: Completed infusion; IV Intake: mg2 1000ml 17:29 Drug: Zosyn 3.375 grams Route: IVPB; Infused Over: 60 mins; Site: right antecubital; mg2 18:33 Follow up: Response: No adverse reaction; IV Status: Completed infusion mg2 17:41 Drug: Demerol 50 mg Route: IVP; Site: right antecubital; mg2 18:33 Follow up: Response: No adverse reaction; Marked relief of symptoms; Pain is decreased mg2 21:26 Drug: Zofran 4 mg Route: IVP; Site: right antecubital; mg2 21:27 Follow up: Response: No adverse reaction; administered prior to transfer mg2 21:27 Drug: Demerol 50 mg Route: IVP; Site: right antecubital; mg2 21:27 Follow up: Response: No adverse reaction; administered prior to transfer mg2 Intake: 17:09 IV: 1000ml; Total: 1000ml. mg2 Outcome: 17:47 ER care complete, transfer ordered by . rn 21:38 Transferred by ground EMS to [facility], Transfer form completed. mg2 21:38 Condition: stable 21:38 Instructed on the need for transfer, Demonstrated understanding of instructions. 21:39 Patient left the ED. mg2 Signatures: Dispatcher [employer] EDSanto Lowe MD MD rn Garcia, Rubi rg4 Ariel Edmond RN RN mg2 Corrections: (The following items were deleted from the chart) 18:28 16:11 Pulse 77bpm; Resp 17bpm; Pulse Ox 98% RA; Pain 0/10; mg2 mg2
[2019-07-27] MEDS ORDERED: ONDANSETRON 4 MG/2 ML VIAL ONE (21:25)
[2019-07-27 22:17] VITALS: BP 120/82; TEMP 99.4; O2SAT 100
== END 2019-07-27 21:39 | disposition short-term general hospital (02) ==
LOC: ER 13:35
DX: K57.80 Diverticulitis of intestine, part unspecified, with perforation and abscess without bleeding (principal); K65.9 Peritonitis, unspecified; Z88.5 Allergy status to narcotic agent
CPT/HCPCS: 96365; 96361; 85025; 80048; 36415; 80076; 83690; 74177; 96375; 99285; Q9967; J2543; J2175 ×3; J7030; J2405